=== PATIENT | female | born 1980 | race Caucasian/White ===

== ENCOUNTER 2017-02-23 13:08 | Outpatient (CLI) | payer MEDICAID ==
[2017-02-23 14:35] LABS: APPEARANCE,URINE CLEAR; BILIRUBIN,URINE NEGATIVE (NEGATIVE); GLUCOSE, URINE NEGATIVE (NEGATIVE); KETONES,URINE 80 mg/dL (NEGATIVE); LEUKOCYTE ESTERASE,URINE NEGATIVE (NEGATIVE); NITRITE,URINE NEGATIVE (NEGATIVE); PROTEIN,URINE NEGATIVE (NEGATIVE); URINE SPECIFIC GRAVITY 1.006; UROBILINOGEN,URINE NEGATIVE mg/dL (<2.0)
[2017-02-23 14:47] LABS: BACTERIA,URINE TRACE /HPF
[2017-02-23 14:58] LABS: HEMATOCRIT 34.5 % (36.0-47.0); HEMOGLOBIN 11.9 g/dL (12.0-15.5); HGB HCT DIFFERENCE 1.2; MEAN CORPUSCULAR HEMOGLOBIN 30.9 pg (27.0-33.4); MEAN CORPUSCULAR HGB CONC 34.3 g/dL (32.0-36.0); MEAN CORPUSCULAR VOLUME 90 fl (80-97); RED BLOOD COUNT 3.84 10^6/uL (3.72-5.28); RED CELL DISTRIBUTION WIDTH 13.5 % (11.5-14.0)
[2017-02-23 15:04] LABS: ALANINE AMINOTRANSFERASE 28 U/L (9-52); ALBUMIN 3.2 g/dL (3.5-5.0); ALKALINE PHOSPHATASE 126 U/L (38-126); AMYLASE 56 U/L (30-110); ANION GAP 9 (5-19); ASPARTATE AMINO TRANSFERASE 18 U/L (14-36); BILIRUBIN,DIRECT 0.3 mg/dL (0.0-0.4); BILIRUBIN,TOTAL 0.5 mg/dL (0.2-1.3); BLOOD UREA NITROGEN 5 mg/dL (7-20); CALCIUM 8.7 mg/dL (8.4-10.2); CARBON DIOXIDE 22 mmol/L (22-30); CHLORIDE 105 mmol/L (98-107); CREATININE RESULT 0.48 mg/dL (0.52-1.25); GLUCOSE 79 mg/dL (75-110); LIPASE 101.3 U/L (23-300); POTASSIUM 3.9 mmol/L (3.6-5.0)
[2017-02-23 15:07] LABS: URINE BARBITURATES SCREEN NEGATIVE; URINE METHADONE SCREEN NEGATIVE; URINE OPIATES LOW NEGATIVE; URINE PHENCYCLIDINE SCREEN NEGATIVE
[2017-02-23 15:19] LABS: BAND NEUTROPHILS % (MANUAL) 7 % (3-5); BASOPHILS % (MANUAL) 0 % (0-2); EOSINOPHILS % (MANUAL) 0 % (0-6); LYMPHOCYTES % (MANUAL) 7 % (13-45); TOTAL CELLS COUNTED 100
[2017-02-23 15:21] LABS: RBC MORPHOLOGY COMMENT NORMO-CYTIC/CHROMIC; TOXIC GRANULATION SLIGHT
[2017-02-23] MEDS ORDERED: MAG HYDROX/AL HYDROX/SIMETH SUSP 30 ML UDCUP PO ONE (15:46)
[2017-02-23] MEDS ORDERED: ONDANSETRON HCL 8 MG TABLET PO ONE (15:50)
[2017-02-23] MEDS ORDERED: MAG HYDROX/AL HYDROX/SIMETH SUSP 30 ML UDCUP ONE (16:12)
[2017-02-23] MEDS ORDERED: METOCLOPRAMIDE HCL INJ/PF 10 MG/2 ML SDV ONE (16:12)
[2017-02-23] MEDS ORDERED: LIDOCAINE 2% VISCOUS SOLN 20 ML UDCUP PO ONE (17:00)
[2017-02-23] MEDS ORDERED: METOCLOPRAMIDE HCL ORAL SOLN 10 MG/10 ML UDCUP PO ONE (17:00)
--- NOTE | 2017-02-23 18:28 | RADIOLOGY REPORT (SQ) ---
EXAM DESCRIPTION: U/S ABDOMEN LIMITED W/O DOP COMPLETED DATE/TIME: 02/23/2017 5:50 pm REASON FOR STUDY: Epigastric pain, COMPARISON: None. TECHNIQUE: Dynamic and static grayscale images acquired of the abdomen and recorded on PACS. Additio nal selected color Doppler and spectral images recorded. LIMITATIONS: None. FINDINGS: PANCREAS: No masses. Visualized pancreatic duct normal caliber. LIVER: No masses. Echotexture normal. LIVER VASCULATURE: Normal directional flow of the main portal vein and hepatic veins. GALLBLADDER: No stones. Normal wall thickness. No pericholecystic fluid. ULTRASOUND-DETECTED BAILEY'S SIGN: Negative. INTRAHEPATIC DUCTS AND COMMON DUCT: CBD and intrahepatic ducts normal caliber. No filling defects. INFERIOR VENA CAVA: Normal flow. AORTA: No aneurysm. RIGHT KIDNEY: Normal size. Normal echogenicity. No solid or suspicious masses. No hydronephrosis. No calcifications. PERITONEAL AND RIGHT PLEURAL SPACE: No ascites or effusions. OTHER: No other significant findings. IMPRESSION: NORMAL RIGHT UPPER QUADRANT ULTRASOUND. TECHNICAL DOCUMENTATION: JOB ID: [id number] [employer]- All Rights Reserved
--- NOTE | 2017-02-23 18:31 | RADIOLOGY REPORT (SQ) ---
EXAM DESCRIPTION: U/S OB LIMITED COMPLETED DATE/TIME: 02/23/2017 5:58 pm REASON FOR STUDY: CL for abd pain, FHR, MVP/KHUSHI COMPARISON: None. TECHNIQUE: Limited transvaginal and transabdominal grayscale ultrasound for evaluation of specific r equested obstetrical parameters. LIMITATIONS: None. FINDINGS: CERVICAL LENGTH: 3.6 cm Closed. Twin A: KHUSHI: 20.6 cm. FHR: 152 beats per minute. PRESENTATION: Cephalic. Twin B: KHUSHI: 15.8 cm. FHR: 153 beats per minute. PRESENTATION: Cephalic. OTHER: No other significant findings. IMPRESSION: LIMITED OBSTETRICAL ULTRASOUND WITH MEASURED PARAMETERS DELINEATED ABOVE. Trimester of : Second trimester - 13 weeks 1 day to 27 weeks 6 days. TECHNICAL DOCUMENTATION: JOB ID: [id number] [employer]- All Rights Reserved
== END 2017-02-23 18:28 | disposition home or self-care (01) ==
LOC: LC 13:08
PROVIDERS: ATTEND Student in an Organized Health Care Education/Training Program
PROC: 4A1HXCZ Monitoring of Products of Conception, Cardiac Rate, External Approach (ICD-10-PCS; principal; 2017-02-23)
DX: O26.892 Other specified pregnancy related conditions, second trimester (principal); R10.13 Epigastric pain; O09.522 Supervision of elderly multigravida, second trimester; Z3A.37 37 weeks gestation of pregnancy
CPT/HCPCS: 59899; 36415; 82150; 83690; 85025; 80053; 81001; 80307; 76705; 76815; J3490 ×3; J2765

== ENCOUNTER 2017-05-08 19:36 | Inpatient (IN) | payer MEDICAID ==
[2017-05-08 20:35] LABS: APPEARANCE,URINE SLIGHTLY-CLOUDY; BILIRUBIN,URINE NEGATIVE (NEGATIVE); COLOR,URINE YELLOW; GLUCOSE, URINE NEGATIVE (NEGATIVE); KETONES,URINE NEGATIVE (NEGATIVE); LEUKOCYTE ESTERASE,URINE NEGATIVE (NEGATIVE); NITRITE,URINE NEGATIVE (NEGATIVE); PROTEIN,URINE NEGATIVE (NEGATIVE); URINE SPECIFIC GRAVITY 1.004; UROBILINOGEN,URINE NEGATIVE mg/dL (<2.0)
[2017-05-08 21:10] LABS: URINE AMPHETAMINES SCREEN NEGATIVE; URINE BARBITURATES SCREEN NEGATIVE; URINE BENZODIAZEPINES SCREEN NEGATIVE; URINE COCAINE SCREEN NEGATIVE; URINE MARIJUANA (THC) SCREEN NEGATIVE; URINE METHADONE SCREEN NEGATIVE; URINE PHENCYCLIDINE SCREEN NEGATIVE
[2017-05-08 22:05] LABS: ABSOLUTE EOSINOPHILS # (AUTO) 0.1 10^3/uL (0.0-0.6); ABSOLUTE LYMPHOCYTES (AUTO) 1.6 10^3/uL (0.5-4.7); ABSOLUTE MONOCYTES (AUTO) 0.6 10^3/uL (0.1-1.4); ABSOLUTE NEUT (AUTO) 6.8 10^3/uL (1.7-8.2); BASOPHILS % (AUTO) 0.3 % (0-2); EOSINOPHILS % (AUTO) 0.8 % (0-6); HEMATOCRIT 36.9 % (36.0-47.0); HEMOGLOBIN 12.7 g/dL (12.0-15.5); LYMPHOCYTES % (AUTO) 17.4 % (13-45); MEAN CORPUSCULAR HEMOGLOBIN 30.5 pg (27.0-33.4); MEAN CORPUSCULAR HGB CONC 34.5 g/dL (32.0-36.0); MEAN CORPUSCULAR VOLUME 88 fl (80-97); MONOCYTES % (AUTO) 6.7 % (3-13); PLATELET COUNT 171 10^3/uL (150-450); RED BLOOD COUNT 4.18 10^6/uL (3.72-5.28); RED CELL DISTRIBUTION WIDTH 14.5 % (11.5-14.0); SEGMENTED NEUTROPHILS % (AUTO) 74.8 % (42-78); TOTAL CELLS COUNTED % (AUTO) 100 %; WHITE BLOOD COUNT 9.2 10^3/uL (4.0-10.5)
[2017-05-09] MEDS ORDERED: RINGERS SOLUTION,LACTATED 1,000 ML IV PRN (05:00)
[2017-05-09] MEDS ORDERED: OXYTOCIN/NORMAL SALINE 20 UNIT/1,000 ML RTUINJ IV PRN ×3 (06:10→15:32)
[2017-05-09] MEDS ORDERED: OXYTOCIN/NORMAL SALINE 20 UNIT/1,000 ML RTUINJ ONE ×2 (06:13→15:21)
[2017-05-09] MEDS ORDERED: BUPIVACAINE HCL 0.25 % INJ/PF (2.5 MG/1 ML) 30 ML VIAL ONE (12:22)
[2017-05-09] MEDS ORDERED: FENTANYL/BUPIVACAINE/NS/PF 200 MCG/100 ML RTUINJ EPI ONE (12:22)
[2017-05-09] MEDS ORDERED: FENTANYL CITRATE INJ/PF 100 MCG/2 ML AMPUL ONE (12:22)
[2017-05-09] MEDS ORDERED: EPHEDRINE SULFATE INJ 50 MG/1 ML AMPULE ONE (12:22)
[2017-05-09] MEDS ORDERED: PHENYLEPHRINE HCL INJ/PF 10 MG/1 ML SDV ONE (12:22)
[2017-05-09] MEDS ORDERED: LIDOCAINE 1% INJ-PF (10 MG/ML) 30 ML SDV ONE (12:23)
[2017-05-09] MEDS ORDERED: MISOPROSTOL 0.2 MG TABLET ONE (12:23)
[2017-05-09] MEDS ORDERED: LIDOCAINE 2%/EPINEPHRINE INJ 20 ML VIAL ONE (13:34)
[2017-05-09] MEDS ORDERED: MEASLES,MUMPS&RUBELLA VACC/PF 0.5 ML VIAL SUBCUT PRN (15:32)
[2017-05-09] MEDS ORDERED: DIPH/PERTUSS(ACELL)/TETANUS VAC/PF 0.5 ML SYR (>=10YO) IM PRN (15:32)
[2017-05-09] MEDS ORDERED: ZOLPIDEM TARTRATE 5 MG TABLET PO PRN (15:32)
[2017-05-09] MEDS ORDERED: DIBUCAINE 1% OINTMENT 28 GM TP PRN (15:32)
[2017-05-09] MEDS ORDERED: BENZOCAINE/MENTHOL AEROSOL SPRAY 56 ML TOP PRN (15:32)
[2017-05-09] MEDS ORDERED: ACETAMINOPHEN WITH CODEINE #3 TABLET PO PRN (15:32)
[2017-05-09] MEDS ORDERED: ACETAMINOPHEN WITH CODEINE #3 TABLET ONE (17:41)
--- NOTE | 2017-05-09 18:30 | Warning Signs in Babies ---
VOD Warning Signs Datetime Report Generated by [facility]: 05/09/2017 18:30 VOD#608 -Warning Signs in Babies: Needs to be viewed. (02/23/2017 13:20:Wesley Goss RN)
--- NOTE | 2017-05-09 18:31 | Delivery Summary ---
Del Sum A-C Datetime Report Generated by CPN: 05/09/2017 18:31 DELIVERY PERSONNEL DELIVERY PERSONNEL: [id number] Delivery Doctor:: Clara Platt MD Nurse Pricer Certified:: Antoinette Leblanc CNM GANTRY CRANE OPERATOR:: Yeny Nye Labor and Delivery Nurse:: Wesley Goss RNfuel conversion technician Nurse:: JOSIAS Villeda Nurse Practitioner:: MARGARET Laird Nursery Nurse:: Gabbie Lamar RN Nursery Nurse:: Nessa Tapia RN Writing Center Director/WELDING MANAGER: [facility] J[facility] Writing Center Director/WELDING MANAGER: Roro Randall MATERNAL INFORMATION Delivery Anesthesia: Epidural Medications After Delivery: Pitocin Bolus-Please Comment; Pitocin Drip 20 Units/1000ml NSS Meds After Delivery Comment: Cytotec 1000 mcg per rectum Estimated Blood Loss (ml): 400 Maternal Complications: Other Other Maternal Complications: Twin Delivery Provider Comments: Patient called out after epidural and cervix was c/c/+3. Griffin catheter in place. Patient had been consented by byself in office for Twin vaginal delivery and possible need for internal version versus and poss breech delivery possible forceps/vacuum/ and possible urgent section for 2nd twin. She had verbalized understanding and desires to proceed with IOL and twin vaginal delivery. Patient was immediately taken to the Operating Room for Twin vaginal delivery. VMI (twin A) delivered in [facility] presentation quickly after arrival to OR at 1351. Shoulders and body delivered without difficulty and no nuchal cord. Cord doubly clamped and cut. Infant to NICU team. At this time FHR for Twin B assessed and within normal limits. position noted to be transverse with back up and internal version converted to vertex and AROM performed at 1403. heart rate noted to 80-90 after conversion to vertex but baby B recovered to 100-110s . Pitocin increased above 20 incrementally due to only rare uterine contractions noted to 44. patient pushed and FHR deceleration to 90's with only small amount of scalp stimulation. Ledezma Leukharts attempted to apply at c/c/0. However, forceps would not articulate well therefor not attempted. Vacuum placed with one pop off and then one release when no progress was made. Vacuum abandoned and at this time FHR recovered to 120's and with pitocin ow above 40 patient began having effective uterine contractions/pushing. Baby B VMI delivered in Direct OP presentation at 1450. No nuchal cord. Shoulders and body delivered without difficulty. Cord doubly clamped and cut and to NICU team. Placenta times 2 delivered at 1453. 1st degree perineal laceration repaired in usual fashion. Good hemostasis after repair. FF at U+1. Cytotec 1000mcg per rectum placed. Patient and babies stable upon provider leaving the room and transfer back to her labor room. Baby A Apgars 9/9, Baby B Apgars 8/9. Weights pending. LABOR SUMMARY EDC: 05/29/2017 00:00 No. Babies in Womb: 2 Attempted: No Labor Anesthesia: Epidural LABOR INFORMATION Reason for Induction: Demise Reason for Induction- Other: twin gestation Onset of Labor: 05/09/2017 11:07 Complete Dilatation: 05/09/2017 13:29 Oxytocin: Induction Group B Beta Strep: neg Antibiotics # of Doses: 0 Antibiotics Time of Last Dose: n/a Name of Antibiotic Given: n/a Steroids Given: None Reason Steroids Not Administered: Not Applicable MEMBRANES Membranes Rupture Method: Artificial Rupture of Membranes: 05/09/2017 11:08 Length of Rupture (hr): 2.72 Amniotic Fluid Color: Clear Amniotic Fluid Amount: Small Amniotic Fluid Odor: Normal STAGES OF LABOR Stage 1 hr: 2 Stage 1 min: 22 Stage 2 hr: 0 Stage 2 min: 22 Stage 3 hr: 1 Stage 3 min: 2 Total Time in Labor hr: 3 Total Time in Labor min: 46 VAGINAL DELIVERY Episiotomy: None Laceration #1: Perineal Laceration Extension #1: First Degree Laceration Repair: Yes Laceration Repair Note: 1st degree perineal laceration repaired in usual fashion Sponge Count Correct: Yes Sharps Count Correct: Yes CSECTION DELIVERY Primary Indication: N/A Secondary Indication: N/A CSection Incidence: N/A Labor: N/A Elective: N/A CSection Incision: N/A BABY A INFORMATION Infant Delivery Date/Time: 05/09/2017 13:51 Method of Delivery: Vaginal Born in Route : No : N/A Forceps: N/A Vacuum Extraction: N/A Shoulder Dystocia : No PRESENTATION/POSITION BABY A Presentation: Cephalic Cephalic Presentation: Vertex Vertex Position: Right Occipital Anterior Breech Presentation: N/A PLACENTA INFORMATION BABY A Placenta Delivery Time : 05/09/2017 14:53 Placenta Method of Delivery: Spontaneous Placenta Status: Delivered SCORES BABY A Heart Rate 1 min: >100 bpm Resp Effort 1 min: Good Cry Reflex Irritability 1 min: Cough or Sneeze or Pulls Away Muscle Tone 1 min: Active Motion Color 1 min: Body [place], Extremities Blue Resuscitation Effort 1 min: Tactile Stimulation SCORE 1 MIN: 9 Heart Rate 5 min: >100 bpm Resp Effort 5 min: Good Cry Reflex Irritability 5 min: Cough or Sneeze or Pulls Away Muscle Tone 5 min: Active Motion Color 5 min: Body [place], Extremities Blue Resuscitation Effort 5 min: N/A SCORE 5 MIN: 9 Resuscitation Effort 10 min: N/A INFANT INFORMATION BABY A Gestational Age at Delivery: 37.1 Gestational Status: Early Term- 37- 38.6 Weeks Infant Outcome : Liveborn Infant Condition : Stable Sex: Male IDENTIFICATION BABY A Infant Verification Date/Time: 05/09/2017 14:05 ID Band Number: [id number] Mother's Name Verified: Yes Infant RN Verifying Infant: Meghana, RN and J., RN WEIGHT/LENGTH BABY A Infant Birthweight (gm): 3010 Weight (lb): 6 Infant Weight (oz): 10 Length (in): 19.50 Length (cm): 49.53 CORD INFORMATION BABY A No. Cord Vessels: 3 Nuchal Cord : N/A Cord Blood Taken: Yes-For Storage (Mom's Blood type +) Suction: Mouth; Nose ASSESSMENT BABY A Complications: None Physical Findings at Delivery: Within Normal Limits Infant Respirations: Appears Normal Skin to Skin: Yes Skin to Skin Time (min): 30 Training Manager/ALS Called : No Infant Care By: Andrés Tapia RN/ Zuleyka Lamar RN Transferred To: Remains with Mother BABY B INFORMATION Infant Delivery Date/Time: 05/09/2017 14:50 Method of Delivery : Vaginal Born in Route : No : N/A Forceps : N/A Vacuum Extraction: N/A Shoulder Dystocia : No SHOULDER DYSTOCIA BABY B Infant Delivery Date/Time: 05/09/2017 14:50 PRESENTATION/POSITION BABY B Presentation : Cephalic Cephalic Position : Vertex Vertex Position: direct OP Breech Position: N/A ROM/PLACENTA INFO BABY B Rupture of Membranes: 05/09/2017 14:03 Length of Rupture (hr): 0.78 Placenta Delivery Time : 05/09/2017 14:53 Placenta Method of Delivery: Spontaneous Placental Status : Delivered SCORES BABY B Heart Rate 1 min: >100 bpm Resp Effort 1 min: Good Cry Reflex Irritability 1 min: Cough or Sneeze or Pulls Away Muscle Tone 1 min: Active Motion Color 1 min: Blue/Pale Resuscitation Effort 1 min: Tactile Stimulation SCORE 1 MIN: 8 Heart Rate 5 min: >100 bpm Resp Effort 5 min: Good Cry Reflex Irritability 5 min: Cough or Sneeze or Pulls Away Muscle Tone 5 min: Active Motion Color 5 min: Body [place], Extremities Blue Resuscitation Effort 5 min: N/A SCORE 5 MIN: 9 INFANT INFORMATION BABY B Gestational Age at Delivery: 37.1 Gestational Status : Early Term- 37- 38.6 Weeks Infant Outcome : Liveborn Condition : Stable Sex : Male IDENTIFICATION BABY B Infant Verification Date/Time: 05/09/2017 15:37 ID Band Number : [id number] Mother's Name Verified: Yes Infant RN Verifying : Simon Goreg KEATINGC/A Jimenez RN WEIGHT/LENGTH BABY B Birthweight (gm): 2900 Weight (lb) : 6 Weight (oz): 6 Infant Length (in): 19.50 Length (cm): 49.53 CORD INFORMATION BABY B No. Cord Vessels : 3 Nuchal Cord : N/A Cord Blood Taken : No-Annotate Infant Suction : Mouth; Nose ASSESSMENT BABY B Infant Complications : Multiple Variable Decels Physical Findings at Delivery: Caput Succedaneum; Molding of the head; Bruising Infant Respirations : Appears Normal Skin to Skin: Yes Skin to Skin Time (min): 30 Training Manager/ALS Called : No Infant Care By : Andrés Tapia RN/ Zuleyka Lamar RN SIGNATURES Signature: with User ID: [email or web address]
--- NOTE | 2017-05-09 18:38 | Admission Physical ---
Datetime Report Generated by CPN: 05/09/2017 18:37 CURRENT ADMISSION Chief Complaint: Scheduled Induction of Labor Indication for Induction- Other: Twins Admit Plan: Admit to Unit Admit Plan- Other: Griffin in am ALLERGIES Medication Allergies: No Medication Allergies: No Known Allergies (02/23/2017) Latex: No Latex Allergies OBSTETRICAL HISTORY EDC: 05/29/2017 00:00 : 3 Para: 2 (Annotations: Data stored by N on behalf of user) Term: 2 : 0 SAB: 0 IAB: 0 Ectopic: 0 Livin Cesareans: 0 VBACs: 0 Multiple Births: 0 Gestational Diabetes: No Rh Sensitization: No Incompetent Cervix: No JULIO: No Infertility: No ART Treatment: No Uterine Anomaly: No IUGR: No Hx Previous C/S: No Macrosomia: No Hx Loss/Stillborn: No PIH: No Hx : No Placenta Previa/Abruption: No Depression/PP Depression: No PTL/PROM: No Post Hemorrhage: No Current Procedures: Ultrasound; NST Obstetrical History Comments: G1- baby girl 9lbs G2- baby girl 5lbs 6oz G3- current- induction di di twins SEE RECORDS Alcohol: No Marijuana : No Cocaine: No Other Illicit Drugs: No Cigarettes: Never Smoker. 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 Surgery: No Heart Disease: No Hosp/Surgery: Yes Autoimmune Disorder: No Anesthetic Complications: No Kidney Disease: No Abnormal Pap Smear: No Neuro/Epilepsy: No Psychiatric Disorders: No Other Medical Diseases: No Hepatitis/Liver Disease: No Significant Family History: No Varicosities/Phlebitis: No Trauma/Violence : No Thyroid Dysfunction: No Medical History Comments: Childbirth x 2 INFECTIOUS HISTORY Gonorrhea: No Genital Herpes: No Chlamydia: No Tuberculosis: No Syphilis: No Hepatitis: No HIV/AIDS Exposure: No Rash or Viral Illness: No HPV: No PHYSICAL EXAM General: Normal HEENT: Normal Neurologic: Normal Thyroid: Normal Heart: Normal Lungs: Normal Breast: Deferred Back: Normal Abdomen: Normal Genitourinary Exam: Normal Extremities: Normal DTRs: Normal Pelvic Type: Adequate Vital Signs: Reviewed VAGINAL EXAM Dilatation: 3 Effacement: 60 Station: 0 MEMBRANES Pooling: Negative Membranes: Intact FETUS A EGA: 37.0 Monitoring: External US FHR- Baseline: 130 Variability: Moderate 6-25bpm FHR Category: Category I Presentation: Vertex Presentation- Other: oblique Admit Comment: she is 2cm 50 with bulging bag. we discussed the cervidil and she would rather not do that. her membranes could be ruptured easily in my estimation. FETUS B Monitoring: External US; Auscultation Monitoring: External US; Auscultation Monitoring: External US; Auscultation Monitoring: External US Monitoring: External US; Auscultation (Annotations: rn at bedside with provider adjusting monitors) Monitoring: External US; Auscultation Monitoring: External US Monitoring: External US Monitoring: External US Monitoring: External US Monitoring: External US Monitoring: External US Monitoring: External US Monitoring: External US Monitoring: External US Monitoring: External US Monitoring: External US Monitoring: External US Monitoring: External US Monitoring: External US Monitoring: External US Monitoring: External US Monitoring: External US Monitoring: External US Monitoring: External US Monitoring: External US Monitoring: External US Monitoring: External US Monitoring: External US Monitoring: External US Monitoring: External US Monitoring: External US Monitoring: External US PLANS FOR LABOR AND DELIVERY Labor and Delivery: None Pain Management: Medications; Epidural Feeding Preference: Breast Benefit of Breast Feed Discussed: Yes Circumcision: Yes INFORMED CONSENT Signature: with User ID: [email or web address]
[2017-05-09] MEDS: FERROUS SULFATE 325 MG TABLET PO SCH (18:56)
[2017-05-09] MEDS: DOCUSATE SODIUM 100 MG CAPSULE PO SCH (18:56)
[2017-05-09] MEDS: IBUPROFEN 800 MG TABLET PO SCH (21:14)
[2017-05-10] MEDS: ACETAMINOPHEN WITH CODEINE #3 TABLET PO PRN ×2 (02:49→11:40)
[2017-05-10] MEDS: IBUPROFEN 800 MG TABLET PO SCH ×3 (05:17→22:00)
[2017-05-10 08:12] LABS: HEMATOCRIT 33.1 % (36.0-47.0); HEMOGLOBIN 11.4 g/dL (12.0-15.5); MEAN CORPUSCULAR HEMOGLOBIN 30.9 pg (27.0-33.4); MEAN CORPUSCULAR HGB CONC 34.3 g/dL (32.0-36.0); MEAN CORPUSCULAR VOLUME 90 fl (80-97); PLATELET COUNT 112 10^3/uL (150-450); RED BLOOD COUNT 3.67 10^6/uL (3.72-5.28); RED CELL DISTRIBUTION WIDTH 14.4 % (11.5-14.0)
--- NOTE | 2017-05-10 08:37 | PDOC PROGRESS REPORT ---
Subjective-OB Progress Note for:: 05/10/17 Subjective: Day #1 s/p of twins Ambulating well, lochia is stable, babies are well, voiding without difficulty, pain well controlled. Physical Exam (OB) Vital Signs: Temp Pulse Resp BP Pulse Ox 98.5 F 69 18 134/79 H 100 05/10/17 00:07 05/10/17 00:07 05/10/17 00:07 05/10/17 00:07 05/10/17 00:07 Intake & Output 05/09/17 05/10/17 05/11/17 06:59 06:59 06:59 Intake Total 1000 Balance 1000 Weight 95.8 kg - PIH/Pre-Eclampsia DTR's: 1 + Clonus: Negative Headache: Absent Epigastric Pain: No Visual Changes: No - Lochia Lochia Amount: Small 10-25 ml Lochia Color: Rubra/Red - Abdomen Description: Tender, Soft, Round Hernia Present: No Fundal Description: Firm, Midline Fundal Height: u/u - u/2 Objective-Diagnostic Laboratory: 05/10/17 07:28 05/10/17 07:28 WBC 10.0 RBC 3.67 L Hgb 11.4 L Hct 33.1 L MCV 90 MCH 30.9 MCHC 34.3 RDW 14.4 H Plt Count 112 L Assessment and Plan(PN) - Assessment and Plan (1) First degree perineal laceration, delivered, current hospitalization Is this a current diagnosis for this admission?: Yes Plan: routine pp care (2) Twin , delivered vaginally, current hospitalization Is this a current diagnosis for this admission?: Yes Plan: routine pp care - Time Spent with Patient Time with patient: Less than 15 minutes Critical Time spent with patient: Less than 15 minutes Medications reviewed and adjusted accordingly: Yes - Disposition Anticipated Discharge: Home Within: within 24 hours
[2017-05-10] MEDS: DOCUSATE SODIUM 100 MG CAPSULE PO SCH ×2 (09:53→17:03)
[2017-05-10] MEDS: SENNOSIDES/DOCUSATE 8.6-50 MG 1 EACH TABLET PO SCH (09:53)
[2017-05-10] MEDS: FERROUS SULFATE 325 MG TABLET PO SCH ×2 (09:53→17:03)
[2017-05-10] MEDS: PRENATAL VITAMIN W DHA CAPSULE PO SCH (09:53)
[2017-05-11] MEDS: IBUPROFEN 800 MG TABLET PO SCH ×3 (06:37→22:59)
--- NOTE | 2017-05-11 08:44 | PDOC DISCHARGE SUMMARY ---
Final Diagnosis Discharge Date: 05/11/17 - Final Diagnosis (1) First degree perineal laceration, delivered, current hospitalization Is this a current diagnosis for this admission?: Yes (2) Twin , delivered vaginally, current hospitalization Is this a current diagnosis for this admission?: Yes Discharge Data - Discharge Medication Prescriptions: Acetaminophen with Codeine [Tylenol #3 Tablet] 1 each PO Q4HP PRN #14 tablet PRN Reason: Docusate Sodium [Colace 100 mg Capsule] 100 mg PO BID #60 capsule Ibuprofen [Motrin 800 mg Tablet] 800 mg PO Q8 #60 tablet Home Medications: Prenat 115/Iron Fum/Folic/Dss [ 19 Tablet] 1 each PO DAILY 02/23/17 Acetaminophen with Codeine [Tylenol #3 Tablet] 1 each PO Q4HP PRN #14 tablet Docusate Sodium [Colace 100 mg Capsule] 100 mg PO BID #60 capsule 05/11/17 Ibuprofen [Motrin 800 mg Tablet] 800 mg PO Q8 #60 tablet 05/11/17 Gestational Age: 37.1 Reason(s) for Admission: Induction of Labor Procedures: NST Intrapartum Procedure(s): Spontaneous Vaginal Delivery Complication(s): Laceration-Vaginal Laceration-Degree: 1st - Data Baby 1 Male at 1 minute: 9 at 5 minutes: 9 Weight: 3010 kg Home with Mother: Yes Complications: No Baby 2 Male at 1 minute: 8 at 5 minutes: 9 Weight: 2900 kg Home with Mother: Yes Complications: No - Diagnosis Test Laboratory: Temp Pulse Resp BP Pulse Ox 98.3 F 65 20 141/88 H 98 05/10/17 20:37 05/10/17 22:00 05/10/17 20:37 05/10/17 22:00 05/10/17 20:37 05/08/17 05/08/17 05/10/17 19:46 21:55 07:28 RBC 4.18 3.67 L Hgb 12.7 11.4 L Hct 36.9 33.1 L Urine Opiates Screen NEGATIVE - Discharge information/Instructions Discharge Activity: Activity As Tolerated, Pelvic Rest, No tub bath Discharge Diet: Regular Disposition: HOME, SELF-CARE Follow up with: [facility] in: 1, Weeks - bp check
--- NOTE | 2017-05-11 09:00 | PDOC PROGRESS REPORT ---
Subjective-OB Progress Note for:: 05/11/17 Subjective: pt doing well but baby B is not being discharged so pt desires to stay Physical Exam (OB) Vital Signs: Temp Pulse Resp BP Pulse Ox 98.3 F 65 20 141/88 H 98 05/10/17 20:37 05/10/17 22:00 05/10/17 20:37 05/10/17 22:00 05/10/17 20:37 Intake & Output 05/10/17 05/11/17 05/12/17 06:59 06:59 06:59 Intake Total 1000 Balance 1000 Baby 1 Male 3010 kg Baby 2 Male 2900 kg - PIH/Pre-Eclampsia DTR's: 1 + Clonus: Negative Headache: Absent Epigastric Pain: No Visual Changes: No - Lochia Lochia Amount: Small 10-25 ml Lochia Color: Rubra/Red - Abdomen Description: Soft, Round Hernia Present: No Fundal Description: Firm, Midline Fundal Height: u/u - u/2 Objective-Diagnostic Laboratory: 05/10/17 07:28 Assessment and Plan(PN) - Assessment and Plan (1) First degree perineal laceration, delivered, current hospitalization Is this a current diagnosis for this admission?: Yes Plan: routine care (2) Twin , delivered vaginally, current hospitalization Is this a current diagnosis for this admission?: Yes - Time Spent with Patient Time with patient: Less than 15 minutes Critical Time spent with patient: Less than 15 minutes Smoking Education Provided: Over 3 minutes Medications reviewed and adjusted accordingly: Yes - Disposition Anticipated Discharge: Home Within: within 24 hours
[2017-05-11] MEDS: PRENATAL VITAMIN W DHA CAPSULE PO SCH (10:28)
[2017-05-11] MEDS: SENNOSIDES/DOCUSATE 8.6-50 MG 1 EACH TABLET PO SCH (10:28)
[2017-05-11] MEDS: FERROUS SULFATE 325 MG TABLET PO SCH ×2 (10:28→18:38)
[2017-05-11] MEDS: DOCUSATE SODIUM 100 MG CAPSULE PO SCH ×2 (10:28→18:37)
[2017-05-11] MEDS: ACETAMINOPHEN WITH CODEINE #3 TABLET PO PRN (18:38)
[2017-05-12] MEDS: IBUPROFEN 800 MG TABLET PO SCH (05:48)
[2017-05-12 08:44] VITALS: BP 139/82
[2017-05-12] MEDS: SENNOSIDES/DOCUSATE 8.6-50 MG 1 EACH TABLET PO SCH (09:55)
[2017-05-12] MEDS: DOCUSATE SODIUM 100 MG CAPSULE PO SCH (09:55)
[2017-05-12] MEDS: FERROUS SULFATE 325 MG TABLET PO SCH (09:55)
[2017-05-12] MEDS: PRENATAL VITAMIN W DHA CAPSULE PO SCH (09:55)
--- NOTE | 2017-05-12 12:33 | PDOC DISCHARGE SUMMARY ---
Final Diagnosis Discharge Date: 05/12/17 - Final Diagnosis (1) First degree perineal laceration, delivered, current hospitalization Is this a current diagnosis for this admission?: Yes (2) Twin Is this a current diagnosis for this admission?: Yes (3) Twin , delivered vaginally, current hospitalization Is this a current diagnosis for this admission?: Yes Discharge Data - Discharge Medication Prescriptions: Acetaminophen with Codeine [Tylenol #3 Tablet] 1 each PO Q4HP PRN #14 tablet PRN Reason: Docusate Sodium [Colace 100 mg Capsule] 100 mg PO BID #60 capsule Ibuprofen [Motrin 800 mg Tablet] 800 mg PO Q8 #60 tablet Home Medications: Prenat 115/Iron Fum/Folic/Dss [ 19 Tablet] 1 each PO DAILY 02/23/17 Acetaminophen with Codeine [Tylenol #3 Tablet] 1 each PO Q4HP PRN #14 tablet Docusate Sodium [Colace 100 mg Capsule] 100 mg PO BID #60 capsule 05/11/17 Ibuprofen [Motrin 800 mg Tablet] 800 mg PO Q8 #60 tablet 05/11/17 Reason(s) for Admission: Induction of Labor Procedures: None Intrapartum Procedure(s): Spontaneous Vaginal Delivery Complication(s): Laceration-Perineal Laceration-Degree: 1st - Diagnosis Test Laboratory: Temp Pulse Resp BP Pulse Ox 98.8 F 70 18 139/82 H 99 05/12/17 12:09 05/12/17 12:09 05/12/17 12:09 05/12/17 07:35 05/12/17 12:09 05/08/17 05/08/17 05/10/17 19:46 21:55 07:28 RBC 4.18 3.67 L Hgb 12.7 11.4 L Hct 36.9 33.1 L Urine Opiates Screen NEGATIVE - Discharge information/Instructions Discharge Activity: Activity As Tolerated, Pelvic Rest, No tub bath Discharge Diet: As Tolerated Disposition: HOME, SELF-CARE Follow up with: [facility] in: 1, 6, Weeks - bp check
== END 2017-05-12 12:46 | disposition home or self-care (01) | DRG 775 ==
LOC: LC 19:36 → LR 20:49 → 2S 05-09 18:36
PROVIDERS: ADMIT Student in an Organized Health Care Education/Training Program; ATTEND Student in an Organized Health Care Education/Training Program
PROC: 10E0XZZ Delivery of Products of Conception, External Approach (ICD-10-PCS; principal; 2017-05-09)
PROC: 0HQ9XZZ Repair Perineum Skin, External Approach (ICD-10-PCS; 2017-05-09)
DX: O30.043 Twin pregnancy, dichorionic/diamniotic, third trimester (principal); O76 Abnormality in fetal heart rate and rhythm complicating labor and delivery; O32.2XX2 Maternal care for transverse and oblique lie, fetus 2; O66.0 Obstructed labor due to shoulder dystocia; O70.0 First degree perineal laceration during delivery; Z3A.37 37 weeks gestation of pregnancy; Z37.2 Twins, both liveborn
CPT/HCPCS: 36415; 80307; 81005; 85025; 85027; 86592; 86850; 86900; 86901; 88307; 94760; J2370; J2590; J3010; J3490

== ENCOUNTER 2017-05-13 10:58 | Inpatient (IN) | payer MEDICAID ==
[2017-05-13] MEDS ORDERED: OXYTOCIN/NORMAL SALINE 20 UNIT/1,000 ML RTUINJ IV PRN (11:52)
[2017-05-13] MEDS ORDERED: RINGERS SOLUTION,LACTATED 1,000 ML IV PRN (11:52)
[2017-05-13] MEDS ORDERED: DIPH/PERTUSS(ACELL)/TETANUS VAC/PF 0.5 ML SYR (>=10YO) IM PRN (11:52)
[2017-05-13] MEDS ORDERED: ACETAMINOPHEN 325 MG TABLET PO PRN (11:52)
[2017-05-13] MEDS ORDERED: MEASLES,MUMPS&RUBELLA VACC/PF 0.5 ML VIAL SUBCUT PRN (11:52)
[2017-05-13] MEDS ORDERED: BENZOCAINE/MENTHOL AEROSOL SPRAY 56 ML TOP PRN (11:52)
[2017-05-13] MEDS ORDERED: ACETAMINOPHEN WITH CODEINE #3 TABLET PO PRN ×2 (11:52)
[2017-05-13] MEDS ORDERED: DIBUCAINE 1% OINTMENT 28 GM TP PRN (11:52)
[2017-05-13] MEDS ORDERED: ZOLPIDEM TARTRATE 5 MG TABLET PO PRN ×2 (11:52)
[2017-05-13] MEDS ORDERED: HYDRALAZINE HCL INJ/PF 20 MG/1 ML SDV IV ONE (11:55)
[2017-05-13] MEDS ORDERED: MAGNESIUM SULFATE 4 GM/100 ML RTUPB IV ONE ×2 (11:56→12:01)
[2017-05-13] MEDS ORDERED: HYDRALAZINE HCL INJ/PF 20 MG/1 ML SDV ONE (12:01)
[2017-05-13 13:33] LABS: UR PRO/CREAT RATIO RESULT 1.8 mg/mg (0.0-0.2); URINE CREATININE 8.7 mg/dL (16-327); URINE PROTEIN 15.3 mg/dL (<12)
[2017-05-13 16:34] LABS: HEMATOCRIT 38.1 % (36.0-47.0); HEMOGLOBIN 12.9 g/dL (12.0-15.5); MEAN CORPUSCULAR HEMOGLOBIN 30.4 pg (27.0-33.4); MEAN CORPUSCULAR HGB CONC 33.9 g/dL (32.0-36.0); MEAN CORPUSCULAR VOLUME 89 fl (80-97); PLATELET COUNT 255 10^3/uL (150-450); RED BLOOD COUNT 4.26 10^6/uL (3.72-5.28); RED CELL DISTRIBUTION WIDTH 14.2 % (11.5-14.0); WHITE BLOOD COUNT 6.9 10^3/uL (4.0-10.5)
[2017-05-13 16:48] LABS: ANION GAP 8 (5-19); BLOOD UREA NITROGEN 9 mg/dL (7-20); CALCIUM 8.1 mg/dL (8.4-10.2); CARBON DIOXIDE 24 mmol/L (22-30); CHLORIDE 108 mmol/L (98-107); GLUCOSE 86 mg/dL (75-110); POTASSIUM 3.6 mmol/L (3.6-5.0); SODIUM 140.2 mmol/L (137-145)
[2017-05-13 16:49] LABS: ALANINE AMINOTRANSFERASE 74 U/L (9-52); ALBUMIN 3.5 g/dL (3.5-5.0); ALKALINE PHOSPHATASE 213 U/L (38-126); ASPARTATE AMINO TRANSFERASE 81 U/L (14-36); BILIRUBIN,DIRECT 0.3 mg/dL (0.0-0.4); BILIRUBIN,TOTAL 0.3 mg/dL (0.2-1.3); LDH 867 U/L (313-618); TOTAL PROTEIN 6.3 g/dL (6.3-8.2); URIC ACID 5.9 mg/dL (2.5-7.0)
[2017-05-13] MEDS ORDERED: IBUPROFEN 800 MG TABLET ONE (17:01)
[2017-05-13] MEDS: IBUPROFEN 800 MG TABLET PO SCH (17:19)
[2017-05-13] MEDS ORDERED: DOCUSATE SODIUM 100 MG CAPSULE PO SCH (18:00)
[2017-05-13] MEDS ORDERED: FERROUS SULFATE 325 MG TABLET PO SCH (18:00)
[2017-05-14] MEDS ORDERED: ACETAMINOPHEN WITH CODEINE #3 TABLET ONE (00:03)
[2017-05-14] MEDS ORDERED: IBUPROFEN 800 MG TABLET ONE (05:51)
[2017-05-14] MEDS ORDERED: NIFEDIPINE 30 MG TAB.ER.24 PO ONE (05:51)
[2017-05-14] MEDS: IBUPROFEN 800 MG TABLET PO SCH (05:53)
[2017-05-14 08:07] LABS: ABSOLUTE EOSINOPHILS # (AUTO) 0.3 10^3/uL (0.0-0.6); ABSOLUTE LYMPHOCYTES (AUTO) 0.9 10^3/uL (0.5-4.7); ABSOLUTE MONOCYTES (AUTO) 0.4 10^3/uL (0.1-1.4); BASOPHILS % (AUTO) 0.3 % (0-2); EOSINOPHILS % (AUTO) 3.9 % (0-6); HEMOGLOBIN 12.6 g/dL (12.0-15.5); LYMPHOCYTES % (AUTO) 11.5 % (13-45); MEAN CORPUSCULAR HEMOGLOBIN 30.5 pg (27.0-33.4); MEAN CORPUSCULAR HGB CONC 34.1 g/dL (32.0-36.0); MEAN CORPUSCULAR VOLUME 90 fl (80-97); MONOCYTES % (AUTO) 5.3 % (3-13); PLATELET COUNT 248 10^3/uL (150-450); RED BLOOD COUNT 4.13 10^6/uL (3.72-5.28); RED CELL DISTRIBUTION WIDTH 14.2 % (11.5-14.0); TOTAL CELLS COUNTED % (AUTO) 100 %; WHITE BLOOD COUNT 7.5 10^3/uL (4.0-10.5)
[2017-05-14 08:26] LABS: ALANINE AMINOTRANSFERASE 82 U/L (9-52); ALBUMIN 3.5 g/dL (3.5-5.0); ALKALINE PHOSPHATASE 216 U/L (38-126); ANION GAP 9 (5-19); ASPARTATE AMINO TRANSFERASE 68 U/L (14-36); BILIRUBIN,DIRECT 0.1 mg/dL (0.0-0.4); BILIRUBIN,TOTAL 0.4 mg/dL (0.2-1.3); BLOOD UREA NITROGEN 9 mg/dL (7-20); CALCIUM 8.6 mg/dL (8.4-10.2); CARBON DIOXIDE 23 mmol/L (22-30); CHLORIDE 109 mmol/L (98-107); GLUCOSE 85 mg/dL (75-110); LDH 977 U/L (313-618); POTASSIUM 4.3 mmol/L (3.6-5.0); SODIUM 141.1 mmol/L (137-145); URIC ACID 5.5 mg/dL (2.5-7.0)
--- NOTE | 2017-05-14 08:44 | PDOC DISCHARGE SUMMARY ---
General - Admit/Disc Date/PCP Admission Date/Primary Care Provider: 05/13/17 10:58 MAX LEROY MD Discharge Date: 05/14/17 - Discharge Diagnosis (1) Preeclampsia in period Is this a current diagnosis for this admission?: Yes - Additional Information Resuscitation Status: Full Code Discharge Diet: Regular Discharge Activity: Balance Activity w/Rest, Pelvic Rest Home Medications: Acetaminophen with Codeine [Tylenol #3 Tablet] 1 each PO Q4HP PRN #14 tablet Ibuprofen [Motrin 800 mg Tablet] 800 mg PO Q8 #60 tablet 05/11/17 History of Present Illness Patient complains of: now feeling better. denies SANDERS/visual changes/RUQ pain. states her edema has resolved History of Present Illness: TOMI VIDAL is a 36 year old female Physical Exam Vital Signs: Intake & Output 05/13/17 05/14/17 05/15/17 06:59 06:59 06:59 Weight 85.6 kg Results Laboratory Results: 05/14/17 07:40 05/14/17 07:40 05/13/17 05/13/17 05/13/17 16:25 16:25 16:25 WBC 6.9 RBC 4.26 Hgb 12.9 Hct 38.1 MCV 89 MCH 30.4 MCHC 33.9 RDW 14.2 H Plt Count 255 Seg Neutrophils % Lymphocytes % Monocytes % Eosinophils % Basophils % Absolute Neutrophils Absolute Lymphocytes Absolute Monocytes Absolute Eosinophils Absolute Basophils Sodium 140.2 Potassium 3.6 Chloride 108 H Carbon Dioxide 24 Anion Gap 8 BUN 9 Creatinine 0.52 Est GFR ( Amer) > 60 Est GFR (Non-Af Amer) > 60 Glucose 86 Uric Acid 5.9 Calcium 8.1 L Magnesium 4.2 H* Total Bilirubin 0.3 AST 81 H ALT 74 H Alkaline Phosphatase 213 H Total Protein 6.3 Albumin 3.5 05/13/17 05/14/17 05/14/17 22:23 07:40 07:40 WBC 7.5 RBC 4.13 Hgb 12.6 Hct 37.0 MCV 90 MCH 30.5 MCHC 34.1 RDW 14.2 H Plt Count 248 Seg Neutrophils % 79.0 H Lymphocytes % 11.5 L Monocytes % 5.3 Eosinophils % 3.9 Basophils % 0.3 Absolute Neutrophils 6.0 Absolute Lymphocytes 0.9 Absolute Monocytes 0.4 Absolute Eosinophils 0.3 Absolute Basophils 0.0 Sodium 141.1 Potassium 4.3 Chloride 109 H Carbon Dioxide 23 Anion Gap 9 BUN 9 Creatinine 0.64 Est GFR ( Amer) > 60 Est GFR (Non-Af Amer) > 60 Glucose 85 Uric Acid 5.5 Calcium 8.6 Magnesium 5.0 H* Total Bilirubin 0.4 AST 68 H ALT 82 H Alkaline Phosphatase 216 H Total Protein 6.0 L Albumin 3.5 Qualifiers - * [place] BEING DISCHARGED WITH ANY OF THE FOLLOWING DIAGNOSIS?: No VTE patient discharged on overlapping Therapy?: Yes Reason(s) for not prescribing Anti-thrombolytic therapy:: Not indicated Plan Discharge Plan: discharged on procardia XL 30 mg daily with BP check in clinic in 5 days. RTC sooner if sx recur Time Spent: Less than 30 Minutes
[2017-05-14] MEDS ORDERED: PRENATAL VITAMIN W DHA CAPSULE PO SCH (10:00)
[2017-05-14] MEDS ORDERED: SENNOSIDES/DOCUSATE 8.6-50 MG 1 EACH TABLET PO SCH (10:00)
== END 2017-05-14 10:27 | disposition home or self-care (01) | DRG 776 ==
LOC: LR 10:58
PROVIDERS: ADMIT Obstetrics & Gynecology; ATTEND Obstetrics & Gynecology
DX: O14.95 Unspecified pre-eclampsia, complicating the puerperium (principal); Z82.49 Family history of ischemic heart disease and other diseases of the circulatory system
CPT/HCPCS: 36415; 80053; 82570; 83615; 83735; 84156; 84550; 85025; 85027; J0360; J3475

== ENCOUNTER 2017-05-15 20:01 | Inpatient (IN) | payer MEDICAID ==
[2017-05-15] MEDS ORDERED: MAGNESIUM SULFATE/D5W 1 GM/100 ML RTUPB IV PRN (20:21)
--- NOTE | 2017-05-15 20:23 | ER Document Report ---
ED GI/ - General Chief Complaint: Post Problem Stated Complaint: PROBLEMS Time Seen by Provider: 05/15/17 20:15 Notes: Patient is a 36-year-old female, status post vaginal delivery of twins on that was admitted on 05/13/17 for preeclampsia, the [facility] emergency department for chief complaint of a mild headache that started a few hours ago and sudden onset of swelling in both feet. She states that her symptoms like this had completely resolved after admission. She is on Procardia and is compliant with this. Otherwise she is only on ibuprofen. She is breast-feeding. She denies any current visual symptoms, denies focal numbness or weakness, denies fever, denies abdominal pain, denies any other complaints. TRAVEL OUTSIDE OF THE [place] IN LAST 30 DAYS: No - Related Data Allergies/Adverse Reactions: No Known Allergies Allergy (Verified 05/08/17 22:41) Past Medical History - General Information source: Patient, Relative - - Social History Smoking Status: Never Smoker Drug Abuse: None Lives with: Family Family History: Reviewed & Not Pertinent Surgical Hx: Negative - Immunizations Immunizations up to date: Yes Hx Diphtheria, Pertussis, Tetanus Vaccination: Yes Review of Systems - Review of Systems Constitutional: No symptoms reported EENT: No symptoms reported Cardiovascular: See HPI Respiratory: No symptoms reported Gastrointestinal: No symptoms reported Genitourinary: No symptoms reported Female Genitourinary: No symptoms reported Musculoskeletal: See HPI Skin: See HPI Hematologic/Lymphatic: No symptoms reported Neurological/Psychological: See HPI Physical Exam - Vital signs Vitals: Temp Pulse Resp BP Pulse Ox 98.7 F 80 18 157/89 H 98 05/15/17 20:09 05/15/17 20:09 05/15/17 20:09 05/15/17 20:09 05/15/17 20:09 Interpretation: Normal - General General appearance: Appears well, Alert In distress: None - HEENT Head: Normocephalic, Atraumatic Eyes: Normal Pupils: PERRL - Respiratory Respiratory status: No respiratory distress Chest status: Nontender Breath sounds: Normal Chest palpation: Normal - Cardiovascular Rhythm: Regular Heart sounds: Normal auscultation Murmur: No - Abdominal Inspection: Normal Distension: No distension Bowel sounds: Normal Tenderness: Nontender Organomegaly: No organomegaly - Back Back: Normal, Nontender - Extremities General upper extremity: Normal inspection, Nontender, Normal color, Normal ROM , Normal temperature General lower extremity: Other - Bilateral lower extremity edema, 1+, pitting, extending up ankles. 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 Orders will be placed, will begin workup and evaluation for Patient evaluated again and is breast-feeding the other child. Fortunately we do have labs pending, IV being placed, blood pressure is elevated and patient has bilateral 1+ pitting edema of the lower extremities consistent with preeclampsia. CBC unremarkable, urinalysis unremarkable, chemistry and LDH unfortunately hemolyzed. Magnesium is infusing. Patient denies current headache. Dr. Platt called, I spoke with her, patient will be admitted to her service. I discussed this with patient, patient states she was hoping that this would not happen, however after after discussion she agrees with admission. - Vital Signs Vital signs: Temp Pulse Resp BP Pulse Ox 98.7 F 80 11 L 142/96 H 97 05/15/17 20:09 05/15/17 20:09 05/15/17 22:46 05/15/17 22:46 05/15/17 22:46 - Laboratory Result Diagrams: 05/15/17 21:30 05/15/17 22:32 Laboratory results interpreted by me: 05/15/17 05/15/17 05/15/17 21:30 21:31 22:32 RDW 14.3 H Chloride 108 H AST 40 H ALT 59 H Alkaline Phosphatase 195 H Lactate Dehydrogenase 917 H Urine Blood LARGE H Ur Leukocyte Esterase TRACE H Discharge - Discharge Clinical Impression: Pre-eclampsia, Hypertension Qualifiers: Hypertension type: unspecified Qualified Code(s): I10 - Essential (primary) hypertension Condition: Stable Disposition: ADMITTED INPATIENT Admitting Provider: [facility] Admitted: Labor and Delivery
[2017-05-15 21:59] LABS: ABSOLUTE BASOPHILS # (AUTO) 0.1 10^3/uL (0.0-0.2); ABSOLUTE EOSINOPHILS # (AUTO) 0.2 10^3/uL (0.0-0.6); ABSOLUTE LYMPHOCYTES (AUTO) 1.6 10^3/uL (0.5-4.7); ABSOLUTE MONOCYTES (AUTO) 0.5 10^3/uL (0.1-1.4); ABSOLUTE NEUT (AUTO) 4.7 10^3/uL (1.7-8.2); BASOPHILS % (AUTO) 0.8 % (0-2); EOSINOPHILS % (AUTO) 2.6 % (0-6); HEMATOCRIT 40.2 % (36.0-47.0); HEMOGLOBIN 13.8 g/dL (12.0-15.5); MEAN CORPUSCULAR HEMOGLOBIN 30.7 pg (27.0-33.4); MEAN CORPUSCULAR HGB CONC 34.4 g/dL (32.0-36.0); MEAN CORPUSCULAR VOLUME 89 fl (80-97); MONOCYTES % (AUTO) 7.5 % (3-13); PLATELET COUNT 320 10^3/uL (150-450); RED BLOOD COUNT 4.51 10^6/uL (3.72-5.28); RED CELL DISTRIBUTION WIDTH 14.3 % (11.5-14.0); SEGMENTED NEUTROPHILS % (AUTO) 67.1 % (42-78); TOTAL CELLS COUNTED % (AUTO) 100 %; WHITE BLOOD COUNT 7.1 10^3/uL (4.0-10.5)
[2017-05-15 22:12] LABS: APPEARANCE,URINE CLEAR; BILIRUBIN,URINE NEGATIVE (NEGATIVE); COLOR,URINE STRAW; GLUCOSE, URINE NEGATIVE (NEGATIVE); KETONES,URINE NEGATIVE (NEGATIVE); LEUKOCYTE ESTERASE,URINE TRACE (NEGATIVE); NITRITE,URINE NEGATIVE (NEGATIVE); PROTEIN,URINE NEGATIVE (NEGATIVE); URINE SPECIFIC GRAVITY 1.004; UROBILINOGEN,URINE NEGATIVE mg/dL (<2.0)
[2017-05-15 23:06] LABS: ALANINE AMINOTRANSFERASE 59 U/L (9-52); ALBUMIN 3.8 g/dL (3.5-5.0); ALKALINE PHOSPHATASE 195 U/L (38-126); ANION GAP 12 (5-19); ASPARTATE AMINO TRANSFERASE 40 U/L (14-36); BILIRUBIN,TOTAL 0.3 mg/dL (0.2-1.3); BLOOD UREA NITROGEN 11 mg/dL (7-20); CALCIUM 9.6 mg/dL (8.4-10.2); CARBON DIOXIDE 23 mmol/L (22-30); CHLORIDE 108 mmol/L (98-107); GLUCOSE 90 mg/dL (75-110); LDH 917 U/L (313-618); SODIUM 142.8 mmol/L (137-145); TOTAL PROTEIN 6.4 g/dL (6.3-8.2)
[2017-05-15] MEDS ORDERED: NIFEDIPINE 30 MG TAB.ER.24 PO ONE (23:39)
[2017-05-16] MEDS ORDERED: HYDRALAZINE HCL INJ/PF 20 MG/1 ML SDV IV ONE (00:08)
[2017-05-16 00:09] LABS: UR PRO/CREAT RATIO RESULT 0.9 mg/mg (0.0-0.2); URINE CREATININE 16.6 mg/dL (16-327); URINE PROTEIN 14.3 mg/dL (<12)
[2017-05-16] MEDS ORDERED: HYDRALAZINE HCL INJ/PF 20 MG/1 ML SDV ONE (00:10)
[2017-05-16] MEDS ORDERED: NIFEDIPINE 30 MG TAB.ER.24 PO ONE ×2 (00:10→06:10)
[2017-05-16] MEDS ORDERED: ACETAMINOPHEN WITH CODEINE #3 TABLET PO PRN ×2 (06:15)
[2017-05-16] MEDS ORDERED: ACETAMINOPHEN WITH CODEINE #3 TABLET ONE (06:18)
--- NOTE | 2017-05-16 12:27 | Admission Physical ---
Datetime Report Generated by CPN: 05/16/2017 12:27 CURRENT ADMISSION Chief Complaint: Signs/Symptoms Gestational HTN Chief Complaint: Scheduled Induction of Labor Indication for Induction- Other: Twins Admit Plan: Admit to Unit; Observation/Evaluation Admit Plan: Admit to Unit Admit Plan- Other: [place] in am ALLERGIES Medication Allergies: No Medication Allergies: No Known Allergies (05/08/2017) Medication Allergies: No Known Allergies (02/23/2017) Latex: No Latex Allergies Food Allergies: none Environmental Allergies: none OBSTETRICAL HISTORY EDC: 05/29/2017 00:00 : 3 Para: 2 (Annotations: Data stored by CPN on behalf of user) Term: 2 : 0 SAB: 0 IAB: 0 Ectopic: 0 Livin Cesareans: 0 VBACs: 0 Multiple Births: 0 Gestational Diabetes: No Rh Sensitization: No Incompetent Cervix: No JULIO: No Infertility: No ART Treatment: No Uterine Anomaly: No IUGR: No Hx Previous C/S: No Macrosomia: No Hx Loss/Stillborn: No PIH: No Hx : No Placenta Previa/Abruption: No Depression/PP Depression: No PTL/PROM: No Post Hemorrhage: No Current Procedures: Ultrasound; NST Obstetrical History Comments: G1- baby girl 9lbs G2- baby girl 5lbs 6oz G3- current- induction di di twins SEE RECORDS Alcohol: No Marijuana : No Cocaine: No Other Illicit Drugs: No Cigarettes: Never Smoker. [id number] MEDICAL HISTORY Diabetes: No Blood Transfusion: No Pulmonary Disease (Asthma, TB): No Breast Disease: No Hypertension: No [employer] Surgery: No Heart Disease: No Hosp/Surgery: Yes Autoimmune Disorder: No Anesthetic Complications: No Kidney Disease: No Abnormal Pap Smear: No Neuro/Epilepsy: No Psychiatric Disorders: No Other Medical Diseases: No Hepatitis/Liver Disease: No Significant Family History: No Varicosities/Phlebitis: No Trauma/Violence : No Thyroid Dysfunction: No Medical History Comments: Childbirth x 2 INFECTIOUS HISTORY Gonorrhea: No Genital Herpes: No Chlamydia: No Tuberculosis: No Syphilis: No Hepatitis: No HIV/AIDS Exposure: No Rash or Viral Illness: No HPV: No PHYSICAL EXAM General: Normal General: Normal HEENT: Normal HEENT: Normal Neurologic: Normal Neurologic: Normal Thyroid: Deferred Thyroid: Normal Heart: Normal Heart: Normal Lungs: Normal Lungs: Normal Breast: Deferred Breast: Deferred Back: Normal Back: Normal Abdomen: Normal Abdomen: Normal Genitourinary Exam: Normal Genitourinary Exam: Normal Extremities: Normal Extremities: Normal DTRs: Normal DTRs: Normal Pelvic Type: Adequate Pelvic Type: Adequate Vital Signs: Reviewed VAGINAL EXAM Dilatation: 3 Effacement: 60 Station: 0 MEMBRANES Pooling: Negative Membranes: Intact FETUS A EGA: 38.1 EGA: 37.0 Monitoring: External US FHR- Baseline: 130 Variability: Moderate 6-25bpm FHR Category: Category I Presentation: Vertex Presentation- Other: oblique Admit Comment: 36yo approx 6 days who presented to the ER with elevated BPs, SANDERS and LE swelling. She was admitted on 05/13 for severe range BPs and SANDERS with LE. She was given magnesium for approx 10 hours then had stable BPs and adequate diuresis and was discharged at approx 10am then next morning. She reports that the night she was discharged she had very high BP and SANDERS and then rested and it was better. Then it occurred tonight again but accompanied by SOB and feeling bad so she came in to the ER. In the ER BP was 157/89 and she was reportedly given 1gram of Mag over an hour times two. Since I was aware that the patient was coming in I called the ER and inquired re: her status and asked re: only one BP done and Mag ordered. I requested the patient be sent here to [facility] and she arrived approx 1 hr later. The patient reports that she voided a lot in the ER. P:C ratio is 0.9 which is 1/2 of what it was when she was admitted on 04/12. Labs improved. Will not re-Mag as labs improved and P:C ratio improved. Will Increase procardia XL 30mg PO BID and add Lasix if needed. Reviewed need to monitor for at least 24 hours to make sure BPs are adequately controlled. Admit Comment: she is 2cm 50 with bulging bag. we discussed the cervidil and she would rather not do that. her membranes could be ruptured easily in my estimation. FETUS B Monitoring: External US; Auscultation Monitoring: External US; Auscultation Monitoring: External US; Auscultation Monitoring: External US Monitoring: External US; Auscultation (Annotations: rn at bedside with provider adjusting monitors) Monitoring: External US; Auscultation Monitoring: External US Monitoring: External US Monitoring: External US Monitoring: External US Monitoring: External US Monitoring: External US Monitoring: External US Monitoring: External US Monitoring: External US Monitoring: External US Monitoring: External US Monitoring: External US Monitoring: External US Monitoring: External US Monitoring: External US Monitoring: External US Monitoring: External US Monitoring: External US Monitoring: External US Monitoring: External US Monitoring: External US Monitoring: External US Monitoring: External US Monitoring: External US Monitoring: External US Monitoring: External US Monitoring: External US PLANS FOR LABOR AND DELIVERY Labor and Delivery: None Pain Management: Medications; Epidural Feeding Preference: Breast Benefit of Breast Feed Discussed: Yes Circumcision: Yes INFORMED CONSENT Signature: with User ID: Shira Signature: with User ID: Alberto : with User ID: Alberto
[2017-05-16] MEDS: NIFEDIPINE 30 MG TAB.ER.24 PO SCH ×2 (12:33→17:33)
[2017-05-17] MEDS: NIFEDIPINE 30 MG TAB.ER.24 PO SCH (06:03)
--- NOTE | 2017-05-17 08:28 | PDOC PROGRESS REPORT ---
Subjective-OB Progress Note for:: 05/17/17 Subjective: doing well, ready to go home Physical Exam (OB) Vital Signs: Temp Pulse Resp BP Pulse Ox 98.2 F 77 18 130/87 H 99 05/17/17 03:53 05/17/17 03:53 05/17/17 03:53 05/17/17 03:53 05/17/17 03:53 Intake & Output 05/16/17 05/17/17 05/18/17 06:59 06:59 06:59 Intake Total 1480 Output Total 3840 Balance -2360 - Abdomen Hernia Present: No Assessment and Plan(PN) - Assessment and Plan (1) Preeclampsia in period Is this a current diagnosis for this admission?: Yes - Time Spent with Patient Time with patient: Less than 15 minutes Medications reviewed and adjusted accordingly: Yes - Disposition Anticipated Discharge: Home Within: Other - home today per Dr. Duncan
[2017-05-17 08:32] VITALS: BP 144/90
--- NOTE | 2017-05-17 08:32 | PDOC DISCHARGE SUMMARY ---
Final Diagnosis Discharge Date: 05/17/17 - Final Diagnosis (1) Preeclampsia in period Is this a current diagnosis for this admission?: Yes Discharge Data - Discharge Medication Home Medications: Ibuprofen [Motrin 800 mg Tablet] 800 mg PO Q8 #60 tablet 05/11/17 Nifedipine [Procardia XL 30 mg Tablet] 30 mg PO Q12A tab.er.24 05/17/17 - Diagnosis Test Laboratory: Temp Pulse Resp BP Pulse Ox 98.2 F 77 18 130/87 H 99 05/17/17 03:53 05/17/17 03:53 05/17/17 03:53 05/17/17 03:53 05/17/17 03:53 - Discharge information/Instructions Discharge Activity: Activity As Tolerated, Balance Activity w/Rest, No Lifting Over 10 Pounds, No Lifting/Push/Pulling, Pelvic Rest Discharge Diet: As Tolerated, Regular Disposition: HOME, SELF-CARE Follow up with: [facility] in: 3, Days - to be seen in office on Friday
== END 2017-05-17 10:20 | disposition home or self-care (01) | DRG 776 ==
LOC: ER 20:01 → EH 22:39 → LR 23:15 → 2S 05-16 12:18
PROVIDERS: ADMIT Student in an Organized Health Care Education/Training Program; ATTEND Student in an Organized Health Care Education/Training Program
DX: O14.95 Unspecified pre-eclampsia, complicating the puerperium (principal)
CPT/HCPCS: 36415; 80053; 81001; 82570; 83615; 83735; 84156; 85025; 96365; 99284; J0360; J3475

== ENCOUNTER → 2020-04-14 | Outpatient (CLI) | payer OTHER ==
--- NOTE | 2020-04-14 16:46 | WOMENS IMAGING REPORT ---
EXAM DESCRIPTION: BILAT SCREENING MAMMO W/CAD IMAGES COMPLETED DATE/TIME: 04/14/2020 3:49 pm REASON FOR STUDY: Z12.31 ENCOUNTER FOR SCREENING MAMMOGRAM FOR MALIGNANT NEOPLASM OF BREAST Z12.31 ENCNTR SCREEN MAMMOGRAM FOR MALIGNANT NEOPLASM OF [place] COMPARISON: None. EXAM PARAMETERS: Standard craniocaudal and mediolateral oblique views of each breast recorded using digital acquisition. Read with the assistance of CAD. .FORMERLY [facility] - [employer] Machine Operator Version 9.2 LIMITATIONS: None. FINDINGS: No suspicious masses, suspicious calcifications or architectural distortion. No areas of c oncern. IMPRESSION: NEGATIVE MAMMOGRAM. BIRADS 1 BREAST DENSITY: b. There are scattered areas of fibroglandular density. BIRAD: ASSESSMENT: 1 NEGATIVE RECOMMENDATION: ROUTINE SCREENING COMMENT: The patient has been notified of the results by letter per MQSA requirements. Additional no tification policies are in place for contacting patient with suspicious or incomplete findings. Quality ID #[id number]: The [employer] recommends an annual screening mammogram for women aged 40 years or over. This facility utilizes a reminder system to ensure that all patients receive reminder letters, and/or direct phone calls for appointments. This includes reminders for routine scr eening mammograms, diagnostic mammograms, or other Breast Imaging Interventions when appropriate. Th is patient will be placed in the appropriate reminder system. TECHNICAL DOCUMENTATION: FINDING NUMBER: (1) ASSESSMENT: (1) JOB ID: [id number] 2010 [employer]- All Rights Reserved Reading location - IP/workstation name: [email or web address]
== END ==
LOC: WI 15:34
PROVIDERS: ATTEND Student in an Organized Health Care Education/Training Program
DX: Z12.31 Encounter for screening mammogram for malignant neoplasm of breast (principal)
CPT/HCPCS: 77067